=== PATIENT | female | born 1990 | race Caucasian/White ===

== ENCOUNTER → 2019-03-18 | Outpatient (CLI) | payer BC | LOC: GMAM 10:19 | PROVIDERS: ATTEND Family Medicine | DX: F41.1 Generalized anxiety disorder (principal) ==

== ENCOUNTER → 2020-01-11 | Outpatient (CLI) | payer BC | LOC: YCFC.O 15:07 | PROVIDERS: ATTEND Nurse Practitioner Family | DX: Z20.828 Contact with and (suspected) exposure to other viral communicable diseases (principal) ==